=== PATIENT | male | born 1975 ===

== ENCOUNTER 2019-08-31 05:49 | Day surgery (SDC) | payer OTHER ==
[~2019-08-31 05:49] MED LIST: [UNRECOGNIZED DRUG - OTHER] PO
[2019-08-31] MEDS ORDERED: ULTRACET PO (08:47)
[2019-08-31] MEDS ORDERED: RECTICARE30 GM TOP (08:48)
== END 2019-08-31 13:45 | disposition home or self-care (01) ==
LOC: CIR.AMB 05:49 → ADM 09:45 → CIR.AMB 09:45
DX: K62.82 Dysplasia of anus (principal); D12.9 Benign neoplasm of anus and anal canal